=== PATIENT | female | born 1995 | race African-American/Black ===

== ENCOUNTER 2018-02-04 15:32 | Emergency (ER) | payer MEDICAID, OTHER ==
[~2018-02-04] VITALS: Ht 170.2 cm; Wt 68.0 kg
[~2018-02-04 15:32] MED LIST: PARL5CAP PO; PROZ20CA11 PO; RISP25P IM
[2018-02-04 15:41] VITALS: BP 137/68; PULSE 85; RESP 16; TEMP 98.3; O2SAT 98
--- NOTE | 2018-02-04 19:23 | PD ---
HPI Chief Complaint: Research Fellow Problem/Complaint Time Seen by Provider: 19:14 Travel History International Travel<30 days: No Contact w/Intl Traveler<30days: No Traveled to known affect area: No History of Present Illness HPI C/O SUPRAPUBIC DISCOMFORT AND DYSURIA/BURNING ON URINATION AND FREQUENCY....denies any alleviating/aggravating factors....denies assoc factors such as fever.rash/n/v/d/vag bleeding NKDA DENIES PMHX/PSHX PFSH Past Medical History ADHD: No Cancer: No Diabetes: No Diminished Hearing: No Psychiatric: No Immunizations Current: Yes Migraines: No Seizures: No Thyroid Disease: No Ulcer: No ?: Unknown LMP: DEC 2017 Past Surgical History Appendectomy: No Cholecystectomy: No Social History Alcohol Use: No Tobacco Use: No Substance Use: No Allergies-Medications (Allergen,Severity, Reaction): Coded Allergies: No Known Allergies (Verified , 07/18/10) Reported Meds & Prescriptions Reported Meds & Active Scripts Active Fluconazole 150 Mg Tab 150 Mg PO ONCE Zofran Odt (Ondansetron Odt) 4 Mg Tab 4 Mg SL Q6HR PRN Prozac (Fluoxetine HCl) 20 Mg Cap 20 Mg PO DAILY Parlodel (Bromocriptine Mesylate) 5 Mg Cap 5 Mg PO QHS Risperdal Consta (Risperidone) 25 Mg/2 Ml Inj 25 Mg IM Q14D *FOR INTRAMUSCULAR USE ONLY* Review of Systems Except as stated in HPI: all other systems reviewed are Neg General / Constitutional: No: Fever Eyes: No: Visual changes HENT: No: Headaches Cardiovascular: No: Chest Pain or Discomfort Respiratory: No: Shortness of Breath Gastrointestinal: No: Abdominal Pain Genitourinary: Positive: Urgency, Frequency, Dysuria Musculoskeletal: No: Pain Skin: No Rash Neurologic: No: Weakness Psychiatric: No: Depression Endocrine: No: Polydipsia Hematologic/Lymphatic: No: Easy Bruising Physical Exam Narrative GENERAL: SKIN: Warm and dry. HEAD: Atraumatic. Normocephalic. EYES: Pupils equal and round. No scleral icterus. No injection or drainage. ENT: No nasal bleeding or discharge. Mucous membranes pink and moist. NECK: Trachea midline. No JVD. CARDIOVASCULAR: Regular rate and rhythm. RESPIRATORY: No accessory muscle use. Clear to auscultation. Breath sounds equal bilaterally. GASTROINTESTINAL: Abdomen soft, non-tender, nondistended. MUSCULOSKELETAL: Extremities without clubbing, cyanosis, or edema. No obvious deformities. NEUROLOGICAL: Awake and alert. No obvious cranial nerve deficits. Motor grossly within normal limits. Five out of 5 muscle strength in the arms and legs. Normal speech. PSYCHIATRIC: Appropriate mood and affect; insight and judgment normal. Data Data Last Documented VS Orders Orders Urinalysis - C+S If Indicated (02/04/18 19:14) Ed Urine Pregnancytest Poc (02/04/18 19:14) Ciprofloxacin (Cipro) (02/04/18 20:45) Metronidazole (Flagyl) (02/04/18 20:45) Ed Discharge Order (02/04/18 20:35) Labs Laboratory Tests Test 02/04/18 19:25 Urine Color YELLOW Urine Turbidity CLEAR Urine pH 7.5 Urine Specific [place] 1.023 Urine Protein NEG mg/dL Urine Glucose (UA) NEG mg/dL Urine Ketones NEG mg/dL Urine Occult Blood NEG Urine Nitrite NEG Urine Bilirubin NEG Urine Urobilinogen 2.0 MG/DL Urine Leukocyte Esterase NEG Urine RBC LESS THAN 1 /hpf Urine WBC 5 /hpf Urine Squamous Epithelial Cells 3 /hpf Urine Mucus FEW /lpf Microscopic Urinalysis Comment CULT NOT INDICATED MDM Medical Decision Making Medical Screen Exam Complete: Yes Emergency Medical Condition: Yes Medical Record Reviewed: Yes Differential Diagnosis UTI V CANDIDIASIS Narrative Course UA NEG FOR UTI NEG PT GIVEN ONE TIME DOSE OF CIPRO/FLAGYL AND AZITHROMYCIN FOR EMPIRIC [place] Diagnosis Primary Impression: URETHRITIS Patient Instructions: Dysuria (ED), General Instructions Scripts Fluconazole (Fluconazole) 150 Mg Tab 150 MG PO ONCE for Infection, #1 TAB 0 Refills Prov: Salbador Gill MD 02/04/18 Ondansetron Odt (Zofran Odt) 4 Mg Tab 4 MG SL Q6HR Y for Nausea/Vomiting, #12 TAB 0 Refills Prov: Salbador Gill MD 02/04/18 Disposition: 01 DISCHARGE HOME Condition: Stable Salbador Gill MD Feb 04, 2018 19:23
[2018-02-04 19:49] LABS: BILIRUBIN, URINE NEG (NEG); BLOOD, URINE NEG (NEG); GLUCOSE,URINE NEG (NEG); KETONE, URINE NEG (NEG); MUCUS URINE FEW /lpf (OCC); NITRITE,URINE NEG (NEG); PH, URINE 7.5 (5.0-8.5); SQUAMOUS EPITHELIAL CELL URINE 3 /hpf (0-5); URINE COLOR YELLOW (YELLW/STRAW); URINE LEUKOCYTE ESTERASE NEG (NEG)
[2018-02-04] MEDS ORDERED: ZOFR4TAB3 SL (20:34)
[2018-02-04] MEDS ORDERED: FLUC150T PO (20:34)
[2018-02-04] MEDS ORDERED: CIPROFLOXACIN 500 MG TAB PO ONE (20:45)
[2018-02-04] MEDS ORDERED: metroNIDAZOLE 500 MG TAB PO ONE (20:45)
== END 2018-02-04 21:41 | disposition home or self-care (01) ==
LOC: NEPD 15:32
DX: N34.2 Other urethritis (principal)
CPT/HCPCS: 81001; 84703; 99283

== ENCOUNTER 2018-03-29 23:17 | Emergency (ER) | payer OTHER ==
[~2018-03-29] VITALS: Ht 170.2 cm; Wt 70.0 kg
[~2018-03-29 23:17] MED LIST changes: +FLUC150T PO; +ZOFR4TAB3 SL
[2018-03-29 23:20] VITALS: BP 128/62; PULSE 80; RESP 14; TEMP 98.5; O2SAT 100
[2018-03-29] MEDS ORDERED: ACETAMINOPHEN 325 MG TAB PO ONE (23:45)
[2018-03-29] MEDS ORDERED: SOD PHOSPHATE/SOD BIPHOSPHATE (ADULT) ENEMA 133ML RECTAL ONE (23:45)
--- NOTE | 2018-03-29 23:52 | PD ---
HPI Chief Complaint: Abdominal Pain Time Seen by Provider: 23:29 Travel History International Travel<30 days: No Contact w/Intl Traveler<30days: No Traveled to known affect area: No History of Present Illness HPI 22yo F who is 12 weeks here with c/o lower abdominal cramping for a few days. Said feels like her period. Also has been having constipation. Denies any fever, chest pain, sob, n/v, vaginal bleeding, dysuria, hematuria, vaginal discharge. Said she has been taking vitamins but has not seen an OBGYN. Said she had an ultrasound this at [facility] Past Medical History ADHD: No Cancer: No Diabetes: No Diminished Hearing: No Psychiatric: No Immunizations Current: Yes Migraines: No Seizures: No Thyroid Disease: No Ulcer: No Tetanus Vaccination: < 5 Years Influenza Vaccination: No ?: LMP: 12 weeks : 1 Para: 0 Past Surgical History Appendectomy: No Cholecystectomy: No Other Surgery: Yes (Hx of hernia repair at age 4.) Social History Alcohol Use: No Tobacco Use: Yes Substance Use: No Allergies-Medications (Allergen,Severity, Reaction): Coded Allergies: No Known Allergies (Verified Adverse Reaction, Unknown, 03/29/18) Reported Meds & Prescriptions Reported Meds & Active Scripts Active Tylenol (Acetaminophen) 325 Mg Tab 650 Mg PO Q6H PRN Colace (Docusate Sodium) 100 Mg Capsule 100 Mg PO BID 10 Days Fluconazole 150 Mg Tab 150 Mg PO ONCE Zofran Odt (Ondansetron Odt) 4 Mg Tab 4 Mg SL Q6HR PRN Prozac (Fluoxetine HCl) 20 Mg Cap 20 Mg PO DAILY Parlodel (Bromocriptine Mesylate) 5 Mg Cap 5 Mg PO QHS Risperdal Consta (Risperidone) 25 Mg/2 Ml Inj 25 Mg IM Q14D *FOR INTRAMUSCULAR USE ONLY* Review of Systems Except as stated in HPI: all other systems reviewed are Neg Physical Exam Narrative GENERAL: 22yo F not in distress. SKIN: Focused skin assessment warm/dry. HEAD: Atraumatic. Normocephalic. EYES: Pupils equal and round. No scleral icterus. No injection or drainage. ENT: No nasal bleeding or discharge. Mucous membranes pink and moist. NECK: Trachea midline. No JVD. CARDIOVASCULAR: Regular rate and rhythm. No murmur appreciated. RESPIRATORY: No accessory muscle use. Clear to auscultation. Breath sounds equal bilaterally. GASTROINTESTINAL: Abdomen soft, mild suprapubic ttp. No RLQ ttp. No rebound tenderness or guarding. PELVIC: +Small amount of white vaginal discharge. No CMT or adnexal tenderness bilaterally. No blood in vaginal vault. RECTAL: Refused. MUSCULOSKELETAL: No obvious deformities. No clubbing. No cyanosis. No edema. NEUROLOGICAL: Awake and alert. No obvious cranial nerve deficits. Motor grossly within normal limits. Normal speech. PSYCHIATRIC: Appropriate mood and affect; insight and judgment normal. Data Data Last Documented VS Vital Signs Date Time Temp Pulse Resp B/P (MAP) Pulse Ox O2 Delivery O2 Flow Rate FiO2 03/29/18 23:20 98.5 80 14 128/62 (84) 100 Orders Orders Gc And Chlamydia Pcr (03/29/18 23:39) Wet Prep Profile (03/29/18 23:39) Urinalysis - C+S If Indicated (03/29/18 23:39) Ed Poc Ultrasound (03/29/18 23:39) Fleets Enema (Adult) (Fleets Enema (Adul (03/29/18 23:45) Acetaminophen (Tylenol) (03/29/18 23:45) Ed Discharge Order (03/30/18 00:47) Labs Laboratory Tests Test 03/29/18 23:35 03/29/18 23:40 Clue Cells (Wet Prep) NONE SEEN Vaginal Trichomonas (Wet Prep) NONE SEEN Vaginal Yeast (Wet Prep) NONE SEEN Urine Color YELLOW Urine Turbidity CLEAR Urine pH 6.0 Urine Specific [place] 1.029 Urine Protein TRACE mg/dL Urine Glucose (UA) NEG mg/dL Urine Ketones 10 mg/dL Urine Occult Blood NEG Urine Nitrite NEG Urine Bilirubin NEG Urine Urobilinogen 2.0 MG/DL Urine Leukocyte Esterase NEG Urine RBC 1 /hpf Urine WBC 2 /hpf Urine Squamous Epithelial Cells 3 /hpf Urine Mucus FEW /lpf Microscopic Urinalysis Comment CULT NOT INDICATED MDM Medical Decision Making Medical Screen Exam Complete: Yes Emergency Medical Condition: Yes Differential Diagnosis Bacterial vaginosis vs. cystitis vs. trichomoniasis vs. constipation secondary to iron in supplements Narrative Course 22yo F who is very well appearing here with suprapubic pain for a few days and constipation. Pt's abdominal exam is benign. Pelvic exam shows a small amount of white vaginal discharge but no blood. Pt will be given acetaminophen. Will check wet prep and urinalysis. Pt refused rectal exam to see if there is stool at the rectum. Said she would take the fleet enema. Pt had bowel movement after fleet enema and feels better. No longer has abdominal pain. Tolerating PO. UA showed WBC 2. Culture not indicated. Wet prep negative. Bedside US reassuring. Return precautions given. Procedures Procedure Narrative Emergency Department Pelvic ultrasound was performed with patient consent. The curvilinear probe was used in the transverse and sagittal views within the suprapubic region revealing single intrauterine . heart rate was 167bpm. + movement. Diagnosis Primary Impression: Qualified Codes: Z3A.12 - 12 weeks gestation of Additional Impression: Constipation Qualified Codes: K59.00 - Constipation, unspecified Referrals: Viv Headley MD call for appointment Patient Instructions: General Instructions Departure Forms: Tests/Procedures Additional Instructions: Please follow up with an OBGYN of your choice as soon as you can. Return to the ED if symptoms worsen. Med/Other Pt SpecificInfo: Prescription(s) given Scripts Acetaminophen (Tylenol) 325 Mg Tab 650 MG PO Q6H Y for PAIN SCALE 1 TO 4, #20 TAB 0 Refills Prov: Catalina Allen DO 03/30/18 Docusate Sodium (Colace) 100 Mg Capsule 100 MG PO BID for Prevent Constipation for 10 Days, #20 CAP 0 Refills Prov: Catalina Allen DO 03/30/18 Disposition: 01 DISCHARGE HOME Condition: Stable Catalina Allen DO March 29, 2018 23:52
[2018-03-30 00:10] LABS: BILIRUBIN, URINE NEG (NEG); BLOOD, URINE NEG (NEG); GLUCOSE,URINE NEG (NEG); KETONE, URINE 10 mg/dL (NEG); MUCUS URINE FEW /lpf (OCC); NITRITE,URINE NEG (NEG); SQUAMOUS EPITHELIAL CELL URINE 3 /hpf (0-5); URINE COLOR YELLOW (YELLW/STRAW); URINE LEUKOCYTE ESTERASE NEG (NEG)
[2018-03-30] MEDS ORDERED: COLA100C5 PO (00:46)
[2018-03-30] MEDS ORDERED: TYLE325T PO (00:46)
== END 2018-03-30 00:58 | disposition home or self-care (01) ==
LOC: NEPC 23:17
DX: O99.611 Diseases of the digestive system complicating pregnancy, first trimester (principal); K59.00 Constipation, unspecified; Z3A.12 12 weeks gestation of pregnancy
CPT/HCPCS: 81001; 87210; 87491; 87591; 99283

== ENCOUNTER 2018-10-17 01:44 | Inpatient (IN) ==
--- NOTE | 2018-10-17 02:31 | ED ---
History of Present Illness Primary Care Physician: No Primary Care Physician Chief Complaint: SROM History of Present Illness: 23-year-old at 39/5 weeks gestation presents to the OB ED for possible rupture of membranes that occurred earlier this morning. Patient states that she passed a lot of clear fluid when she went up to use the restroom. Admits to mild, irregular contractions. States that she has felt some decreased movement this morning. Denies vaginal bleeding. Denies headaches, change in vision, nausea, vomiting, chest pain, shortness of breath, leg pain or swelling. Patient is GBS positive states that all other labs were negative. She had completed 7 days of amoxicillin for positive GBS. OB history: This is her first . No complications during this thus far. Past medical history: None Medications: PNV for 1st 7 months of Allergies: None Surgeries: None Hospitalizations: None Family hx: Mother with HTN Social history: Smokes about 1/2 PPD. Denies EtOH and other drug use during this . PCP: Dr. Abernathy at [facility] Weeks Gestation:: 39 Para: 0 : 1 - Inpatient Certification I certify that the inpatient services were ordered in accordance with Medicare regulations governing the order. This includes certification that hospital inpatient services are reasonable and necessary and in the case of services not specified as inpatient-only under 42 CFR 419.22(n), that they are appropriately provided as inpatient services in accordance to with the 2-midnight benchmark under 43 CFR 412.3(e) Review of Systems All other systems reviewed negative except as stated in HPI PMFSH - History History Provided By: Patient - Medical / Surgical Hx Neg / Unobtainable Medical Problems Denied: Yes Surgical History: No Previous Surgery - Social History I have reviewed the patient's Social History: Yes - Tobacco History Smoking Status: Current every day smoker Tobacco Type: Cigarettes Packs Per Day: 0.5 - Alcohol History How Often Do You Have a Drink Containing Alcohol: Never - Substance Use History Substance History: No History of Abuse - Travel History Recent Travel in the [place] Within the Last 8 Weeks: No Recent Travel Out of the Country Within the Last 8 Weeks: No Medications and Allergies Allergies Allergy/AdvReac Type Severity Reaction Status Date / Time No Known Allergies Unknown Uncoded 03/29/18 23:19 Exam Vital signs: Vital Signs 10/17/18 02:07 Temperature 97.9 F Pulse Rate 76 Respiratory Rate 18 Blood Pressure 131/87 Narrative: GENERAL: Well-nourished, well-developed patient. SKIN: Warm and dry. HEAD: Normocephalic and atraumatic. EYES: No scleral icterus. No injection or drainage. ENT: No nasal drainage noted. Airway patent. CARDIOVASCULAR: Regular rate and rhythm without murmurs, gallops, or rubs. RESPIRATORY: Breath sounds equal bilaterally. No accessory muscle use. ABDOMEN/GI: Abdomen soft, non-tender, bowel sounds present, no rebound, no guarding Gravid to 39 weeks size GENITOURINARY: Cervix: Posterior Dilatation: 0-1 Effacement: 40 Station: -2 Presentation: vertex Membranes: ruptured Uterine Contractions: occasional FHT's: Category: 2 Baseline: 120s Reactive: N Variability: minimal to moderate Decels: none, no accelerations EXTREMITIES: No cyanosis or edema. NEUROLOGICAL: Awake and alert. Motor and sensory grossly within normal limits. Five out of 5 muscle strength in all muscle groups. Normal speech. Results - Labs CBC & Chem 7: 10/17/18 02:33 Assessment and Plan - Diagnosis (1) 39 weeks gestation of Code(s): Z3A.39 - 39 weeks gestation of Status: Acute (2) Spontaneous rupture of membranes Status: Acute (3) Group beta Strep positive Code(s): B95.1 - Streptococcus, group B, as the cause of diseases classified elsewhere Status: Acute - Plan 23-year-old female at 39/5 weeks gestation presents for SROM -FHT category 2, for minimal to moderate variability without significant reactivity. Baseline of 120. -Cervical check: posterior, 0-1/40%/-2 -Admit to L&D for expectant management saul Richards Discharge Plan - Physicians Team ED Provider: Rachele Richards Primary Care Provider: Primary Care Physici,No - Discharge Instructions Print Language: Nigerian
[2018-10-17] MEDS ORDERED: Naloxone Inj 0.4 MG/ML Vial IV.PUSH PRN (02:33)
[2018-10-17] MEDS ORDERED: Sodium Chlor 0.9% Inj 500 ML IV.SIG PRN (02:33)
[2018-10-17] MEDS ORDERED: fentaNYL Citrate Inj 100 MCG/2 ML Ampul IV.PUSH PRN (02:33)
[2018-10-17] MEDS ORDERED: Oxytocin 30 Units/500ml Premix 30 UNITS/500 ML BAG IV.SIG ONE (02:33)
[2018-10-17] MEDS ORDERED: Sod Chloride 0.9% Inj 1,000 ML IV.CONT PRN (02:33)
[2018-10-17] MEDS ORDERED: Citric Acid/Sodium Citrate Liq 30 ML UDC PO SCH (02:45)
[2018-10-17 02:52] LABS: Baso # (Auto) 0.1 th/mm3 (0.0-0.2); Baso % (Auto) 0.4 % (0.0-2.0); Eos # (Auto) 0.1 th/mm3 (0.0-0.4); Eos % (Auto) 0.7 % (0.0-4.0); Hematocrit 30.9 % (35.0-46.0); Hemoglobin 10.6 gm/dL (11.6-15.3); Lymph # (Auto) 3.1 th/mm3 (1.0-4.8); Lymph % (Auto) 18.5 % (9.0-44.0); Mean Corpuscular HGB Conc 34.1 % (32.0-36.0); Mean Corpuscular Hemoglobin 30.5 pg (27.0-34.0); Mean Corpuscular Volume 89.5 fL (80.0-100.0); Mean Platelet Volume 8.7 fL (7.0-11.0); Mono # (Auto) 1.2 th/mm3 (0.0-0.9); Mono % (Auto) 7.5 % (0.0-8.0); Neut # (Auto) 12.1 th/mm3 (1.8-7.7); Neut % (Auto) 72.9 % (16.0-70.0); Platelet Count 306 th/mm3 (150-450); Red Blood Count 3.46 mil/mm3 (4.00-5.30); Red Cell Distribution Width 13.8 % (11.6-17.2); White Blood Count 16.5 th/mm3 (4.0-11.0)
[2018-10-17] MEDS ORDERED: Penicillin G Potassium Inj 5,000,000 UNIT in Sodium Chloride 0.9% Inj 100 ML IV.SIG ONE (03:00)
[2018-10-17 03:08] LABS: Bacteria,Urine Rare /hpf; Bilirubin,Urine Negative (Negative); Clarity,Urine Clear (Clear); Color,Urine Straw (Yellw/Straw); Glucose,Urine (UA) Negative (Negative); Leukocyte Esterase,Urine Negative (Negative); Mucus,Urine Few /lpf (Occasional); Nitrite,Urine Negative (Negative); Specific Gravity,Urine 1.008 (1.002-1.035); Squamous Epithelial Cell,Urine 1 /hpf (0-5)
[2018-10-17 03:12] LABS: Amphetamine Urine With Conf Neg (Neg); Benzodiazepine Urine With Conf Neg (Neg); Cocaine Urine With Conf Neg (Neg); Opiates Urine With Conf Neg (Neg)
[2018-10-17 03:13] LABS: Cannabinoid Urine With Conf Neg (Neg)
[2018-10-17] MEDS: Penicillin G Potassium Inj 2,500,000 UNIT in Sodium Chlor 0.9% Inj 100 ML IV.SIG SCH ×4 (07:57→19:26)
[2018-10-17] MEDS: fentaNYL Citrate Inj 100 MCG/2 ML Ampul IV.PUSH PRN ×5 (11:34→23:16)
[2018-10-18] MEDS: Penicillin G Potassium Inj 2,500,000 UNIT in Sodium Chlor 0.9% Inj 100 ML IV.SIG SCH ×2
[2018-10-18] MEDS ORDERED: Oxytocin 30 Units/500ml Premix 30 UNITS/500 ML BAG ONE (01:04)
[2018-10-18] MEDS ORDERED: Lidocaine 1% Inj 50 ML Vial ONE (01:04)
[2018-10-18] MEDS ORDERED: Benzocaine 20% Top Spray 60 ML Can TOPICAL PRN (02:14)
[2018-10-18] MEDS ORDERED: Naloxone Inj 0.4 MG/ML Vial IV.PUSH PRN (02:14)
[2018-10-18] MEDS ORDERED: Witch Hazel 50%/Glyderin 12.5% 40 Pad Jar RECTAL PRN (02:14)
[2018-10-18] MEDS ORDERED: Oxytocin 30 Units/500ml Premix 30 UNITS/500 ML BAG IV.CONT PRN (02:14)
[2018-10-18] MEDS ORDERED: Zolpidem Tartrate 5 MG Tablet PO PRN (02:14)
[2018-10-18] MEDS ORDERED: Bisacodyl 10 MG Supp RECTAL PRN (02:14)
--- NOTE | 2018-10-18 02:16 | P.OBDELI ---
Weeks Gestation: 39 Anesthesia: Epidural Episiotomy: none Vaginal Delivery: Normal Presentation: Occiput anterior Nuchal Cord: None Delayed Cord Clamping (45 sec): Yes Placenta: Spontaneous delivery Laceration: None Estimated blood loss (mL): 100 Infant: Male Infant Male A Delivery Date: 10/18/18 Delivery Time: 02:07 Weight: 3.065 kg score (1 min): 9 score (5 min): 9
[2018-10-18] MEDS: Senna/Docusate Sodium 8.6/50 MG Tablet PO SCH ×2 (08:34→23:37)
[2018-10-18] MEDS: Acetaminophen 325 MG Tablet PO PRN (08:34)
[2018-10-18] MEDS ORDERED: Measles/Mumps/Rubella Vaccine Inj 0.5 ML Vial SQ ONE (16:00)
[2018-10-18] MEDS ORDERED: Diphtheria/Tetanus/Pertussis Vaccine Inj 0.5 ML Syringe IM ONE (16:00)
[2018-10-19] MEDS: Senna/Docusate Sodium 8.6/50 MG Tablet PO SCH ×2 (08:40→22:17)
--- NOTE | 2018-10-19 08:41 | P.PNOB ---
Subjective Interval history: 23 year old female s/p at 39 wks gestation, PPD1. AFVSS. Patient reports she is feeling well. Bleeding is decreasing and pain is well- controlled. She is formula feeding and bonding well with baby. Ambulating without difficulties. She is tolerating a diet without nausea or vomiting. She has not had a bowel movement. She has passed gas. Denies chest pain, dysuria, shortness of breath, or calf pain. Objective Vital Signs/I&O: Vital Signs 10/18/18 20:00 Temperature 98.1 F Pulse Rate 101 H Respiratory Rate 18 Blood Pressure 133/74 Result Diagrams: 10/17/18 02:33 Objective Remarks: GENERAL: Well-nourished, well-developed patient. CARDIOVASCULAR: Regular rate and rhythm without murmurs, gallops, or rubs. RESPIRATORY: Breath sounds equal bilaterally. No accessory muscle use. ABDOMEN/GI: Abdomen soft, non-tender. Fundus: Firm, non-tender at umbilicus. GENITOURINARY: Light to moderate bleeding. EXTREMITIES: No cyanosis or edema, non-tender, without signs of DVT. Medications and IVs: Active Medications Acetaminophen (Tylenol) 650 mg PO Q4H PRN PRN Reason: PAIN SCALE 1 TO 2 Last Admin: 10/18/18 08:34 Dose: 650 mg Al Hydroxide/Mg Hydroxide (Milk Of Magnesia Liq) 30 ml PO Q12H PRN PRN Reason: Mild Constipation Benzocaine (Americaine 20% Top [place]) 1 spray TOPICAL Q4H PRN PRN Reason: For Perineum Discomfort Bisacodyl (Dulcolax Supp) 10 mg RECTAL DAILY PRN PRN Reason: SEVERE CONSITIPATION Citric Acid/Sodium Citrate (Sodium Citrate/Citric Acid Liq) 30 ml PO [employer] [facility] Stop: 10/21/18 02:44 Fentanyl Citrate (Fentanyl Inj) 50 mcg IV.PUSH Q1H PRN PRN Reason: Pain Scale 3 - 5 Fentanyl Citrate (Fentanyl Inj) 100 mcg IV.PUSH Q1H PRN PRN Reason: PAIN SCALE 6 TO 10 Last Admin: 10/17/18 23:16 Dose: 100 mcg Lactated Ringer's (Lr 1000 Ml Inj) 1,000 mls @ 3,000 mls/hr IV.SIG UNSCH PRN PRN Reason: compromise or epidural Lactated Ringer's (Lr 1000 Ml Inj) 1,000 mls @ 125 mls/hr IV.CONT .Q8H [facility] Last Admin: 10/17/18 18:57 Dose: 125 mls/hr Sodium Chloride (Ns Inj) 500 mls @ 1,000 mls/hr IV.SIG UNSCH PRN PRN Reason: SEE LABEL COMMENTS Sodium Chloride (Ns Inj) 1,000 mls @ 100 mls/hr IV.CONT .Q10H PRN PRN Reason: SEE LABEL COMMENTS Penicillin G Potassium 2,500, (000 unit/ Sodium Chloride) 100 mls @ 200 mls/hr IV.SIG Q4H GIANNA Last Admin: 10/18/18 00:00 Dose: 200 mls/hr Oxytocin (Pitocin 30 Units/Ns 500 Ml Premix) 30 units in 500 mls @ 100 mls/hr IV.CONT UNSCH PRN PRN Reason: Heavy bleeding Ibuprofen (Motrin) 800 mg PO Q8H PRN PRN Reason: For Cramping Last Admin: 10/19/18 06:54 Dose: 800 mg Lactulose (Lactulose Liq) 30 ml PO DAILY PRN PRN Reason: SEVERE CONSITIPATION Lidocaine HCl (Xylocaine 1% Inj) 0.1 ml I-DERMAL PRN PRN PRN Reason: For IV start Stop: 10/20/18 02:32 Mineral Oil (Muri-Lube Oil) 10 ml TOPICAL PRN PRN PRN Reason: PRN perineal massage Misoprostol (Cytotec) 25 mcg PO Q4H [facility] Last Admin: 10/19/18 08:08 Dose: Not Given Naloxone HCl (Narcan Inj) 0.1 mg IV.PUSH Q2M PRN PRN Reason: for opiate reversal Naloxone HCl (Narcan Inj) 0.1 mg IV.PUSH Q2M PRN PRN Reason: for opiate reversal Ondansetron HCl (Zofran Inj) 4 mg IV.PUSH Q6H PRN PRN Reason: NAUSEA OR VOMITING Ondansetron HCl (Zofran Odt) 4 mg PO Q6H PRN PRN Reason: NAUSEA OR VOMITING Oxycodone/Acetaminophen (Percocet 5/325 Mg) 1 tab PO Q4H PRN PRN Reason: PAIN SCALE 3 TO 5 Last Admin: 10/19/18 06:54 Dose: 1 tab Senna/Docusate Sodium (Cheryl-Colace) 1 tab PO BID [facility] Last Admin: 10/18/18 23:37 Dose: Not Given Sennosides (Senokot) 17.2 mg PO Q12H PRN PRN Reason: Moderate Constipation Sodium Chloride (Ns Flush) 2 ml IV.FLUSH BID [facility] Last Admin: 10/18/18 23:37 Dose: Not Given Sodium Chloride (Ns Flush) 2 ml IV.FLUSH PRN PRN PRN Reason: FLUSH AFTER USING IV ACCESS Witch Mildred/Glycerin (Tucks Pads) 1 applicatio RECTAL QID PRN PRN Reason: HEMORRHOIDS Zolpidem Tartrate (Ambien) 5 mg PO HS PRN PRN Reason: SLEEP Assessment and Plan - Diagnosis (1) Vaginal delivery Code(s): O80 - Encounter for full-term uncomplicated delivery Status: Acute - Plan 23 yo female s/p , PPD 1 - AFVSS - Continue routine care - Motrin PRN pain - Encourage OOB - Pelvic rest x 6 wks. - Contraception: Undecided - Anticipate D/C tomorrow sdw Dr. Macdonald
[2018-10-20] MEDS: Acetaminophen 325 MG Tablet PO PRN (01:33)
[2018-10-20 08:28] VITALS: BP 113/63; PULSE 77; RESP 2; TEMP 98.4
--- NOTE | 2018-10-20 09:06 | P.PNOB ---
Subjective Post day: 2 Interval history: day # 2. AFVSS overnight. Pain well controlled. Decreased lochia. Denies dysuria. No breast tenderness. She is feeding the baby via bottle. Appetite good. No nausea or vomiting. Passed flatus. Had bowel movement. Ambulating well. Denies calf pain, shortness of breath, or cough. Otherwise, she is doing well this morning and has no other complaints. Objective Vital Signs/I&O: Vital Signs 10/19/18 20:00 10/20/18 08:00 Temperature 97.8 F 98.4 F Pulse Rate 76 77 Respiratory Rate 18 2 L Blood Pressure 119/75 113/63 Result Diagrams: 10/17/18 02:33 Objective Remarks: GENERAL: Well-nourished, well-developed patient. CARDIOVASCULAR: Regular rate and rhythm without murmurs, gallops, or rubs. RESPIRATORY: Breath sounds equal bilaterally. No accessory muscle use. ABDOMEN/GI: Abdomen soft, non-tender. Fundus: Firm, non-tender at umbilicus. GENITOURINARY: Light to moderate bleeding. EXTREMITIES: No cyanosis or edema, non-tender, without signs of DVT. Medications and IVs: Active Medications Acetaminophen (Tylenol) 650 mg PO Q4H PRN PRN Reason: PAIN SCALE 1 TO 2 Last Admin: 10/20/18 01:33 Dose: 650 mg Al Hydroxide/Mg Hydroxide (Milk Of Magnesia Liq) 30 ml PO Q12H PRN PRN Reason: Mild Constipation Last Admin: 10/19/18 15:45 Dose: 30 ml Benzocaine (Americaine 20% Top [place]) 1 spray TOPICAL Q4H PRN PRN Reason: For Perineum Discomfort Bisacodyl (Dulcolax Supp) 10 mg RECTAL DAILY PRN PRN Reason: SEVERE CONSITIPATION Citric Acid/Sodium Citrate (Sodium Citrate/Citric Acid Liq) 30 ml PO IT TECHNICAL SPECIALIST [facility] Stop: 10/21/18 02:44 Fentanyl Citrate (Fentanyl Inj) 50 mcg IV.PUSH Q1H PRN PRN Reason: Pain Scale 3 - 5 Fentanyl Citrate (Fentanyl Inj) 100 mcg IV.PUSH Q1H PRN PRN Reason: PAIN SCALE 6 TO 10 Last Admin: 10/17/18 23:16 Dose: 100 mcg Lactated Ringer's (Lr 1000 Ml Inj) 1,000 mls @ 3,000 mls/hr IV.SIG UNSCH PRN PRN Reason: compromise or epidural Lactated Ringer's (Lr 1000 Ml Inj) 1,000 mls @ 125 mls/hr IV.CONT .Q8H [facility] Last Admin: 10/17/18 18:57 Dose: 125 mls/hr Sodium Chloride (Ns Inj) 500 mls @ 1,000 mls/hr IV.SIG UNSCH PRN PRN Reason: SEE LABEL COMMENTS Sodium Chloride (Ns Inj) 1,000 mls @ 100 mls/hr IV.CONT .Q10H PRN PRN Reason: SEE LABEL COMMENTS Oxytocin (Pitocin 30 Units/Ns 500 Ml Premix) 30 units in 500 mls @ 100 mls/hr IV.CONT UNSCH PRN PRN Reason: Heavy bleeding Ibuprofen (Motrin) 800 mg PO Q8H PRN PRN Reason: For Cramping Last Admin: 10/19/18 18:02 Dose: 800 mg Lactulose (Lactulose Liq) 30 ml PO DAILY PRN PRN Reason: SEVERE CONSITIPATION Mineral Oil (Muri-Lube Oil) 10 ml TOPICAL PRN PRN PRN Reason: PRN perineal massage Misoprostol (Cytotec) 25 mcg PO Q4H [facility] Last Admin: 10/20/18 05:03 Dose: Not Given Naloxone HCl (Narcan Inj) 0.1 mg IV.PUSH Q2M PRN PRN Reason: for opiate reversal Naloxone HCl (Narcan Inj) 0.1 mg IV.PUSH Q2M PRN PRN Reason: for opiate reversal Ondansetron HCl (Zofran Inj) 4 mg IV.PUSH Q6H PRN PRN Reason: NAUSEA OR VOMITING Ondansetron HCl (Zofran Odt) 4 mg PO Q6H PRN PRN Reason: NAUSEA OR VOMITING Oxycodone/Acetaminophen (Percocet 5/325 Mg) 1 tab PO Q4H PRN PRN Reason: PAIN SCALE 3 TO 5 Last Admin: 10/19/18 06:54 Dose: 1 tab Senna/Docusate Sodium (Cheryl-Colace) 1 tab PO BID [facility] Last Admin: 10/19/18 22:17 Dose: Not Given Sennosides (Senokot) 17.2 mg PO Q12H PRN PRN Reason: Moderate Constipation Sodium Chloride (Ns Flush) 2 ml IV.FLUSH BID [facility]IANNA Last Admin: 10/19/18 22:16 Dose: Not Given Sodium Chloride (Ns Flush) 2 ml IV.FLUSH PRN PRN PRN Reason: FLUSH AFTER USING IV ACCESS Witch Mildred/Glycerin (Tucks Pads) 1 applicatio RECTAL QID PRN PRN Reason: HEMORRHOIDS Zolpidem Tartrate (Ambien) 5 mg PO HS PRN PRN Reason: SLEEP Assessment and Plan - Diagnosis (1) Vaginal delivery Code(s): O80 - Encounter for full-term uncomplicated delivery Status: Acute - Plan 23 yo female s/p , PPD 2 - AFVSS - Continue routine care - Motrin PRN pain - Encourage OOB - Pelvic rest x 6 wks. - Contraception: Does not want BC. - Discharge home today vjw Dr. Ricahrds
[2018-10-20] MEDS: Senna/Docusate Sodium 8.6/50 MG Tablet PO SCH (11:05)
== END 2018-10-20 15:58 | disposition home or self-care (01) ==
LOC: HOBED 01:44 → H2E 02:08 → H1EA 10-18 03:40
PROVIDERS: ADMIT Obstetrics & Gynecology; ATTEND Obstetrics & Gynecology